=== PATIENT | male | born 1970 | race Caucasian/White ===

== ENCOUNTER 2016-03-23 11:15 | Emergency (ER) | payer SELFPAY ==
--- NOTE | 2016-03-23 11:32 | ED Physician Documentation ---
Seizure - HISTORIAN Historian: patient (Pateint states that he has seizures several times a year, was on anticonvulsnat meds at one time but did not tolerate them. Has not had any medications for several years and does not want to take any. No precipitating causes for his seizures. ) - HPI Chief Complaint: Seizure Timing/Onset/Duration: details cant be verified. denies: multiple episodes, continued on arrival Last known Well Date: 03/23/16 Last Known Well Time: 10:50 Last known Well Code/Unknown Code: Known Witnessed By: friend Preceding Symptoms: none Activity Prior to Seizure: sitting at [employer] Character of Seizure(s): lost consciousness, "shaking all over". denies: incontinence of urine, incontinence of stool, stopped breathing Postictal Symptoms: confusion Location of Injury: none Further Comments: yes (Patient has a history of seizures, occur about 2 times a year. Patient is currently not on any seizure medications. Not sure when his last one was.) - ROS NEURO/PSYCH: denies: headache EYES/ENT: none CVS/RESP: none - PAST HX Previous seizure/seizure disorder: occasional, since childhood Etiology: idiopathic Other History: none Surgeries/Procedures: none Immunizations: referred to PCP Allergies/Adverse Reactions: Allergies Allergy/AdvReac Type Severity Reaction Status Date / Time No Known Allergies Allergy Verified 03/23/16 11:57 Home Medications: Ambulatory Orders Medication Instructions Recorded NK [NK] 03/23/16 - SOCIAL HX Smoking History: non-smoker Alcohol Use: none Drug Use: none - FAMILY HX Family History: none - VITAL SIGNS Vital Signs: Vital Signs Temp Pulse Resp BP Pulse Ox 98.4 F 120 H 20 144/81 94 03/23/16 12:00 03/23/16 12:00 03/23/16 12:00 03/23/16 12:00 03/23/16 12:00 - REVIEWED ASSESSMENTS Nursing Assessment Reviewed: Yes ED Results Lab/Radiology - Lab Results Lab Results: Lab Results 03/23/16 03/23/16 11:25 11:25 WBC 7.60 K/ul K/ul (4.00-12.00) RBC 5.56 M/ul H M/ul (3.90-5.20) Hgb 16.4 g/dL g/dL (12.0-18.0) Hct 51.3 % % (37.0-53.0) MCV 92.3 fl fl (80.0-100.0) MCH 29.5 pg pg (28.0-34.0) MCHC 31.9 g/dL g/dL (30.0-36.0) RDW 12.8 % % (11.3-14.3) Plt Count 340 K/mm3 K/mm3 (130-400) Neut % (Auto) 46.0 % % (39.0-79.0) Lymph % (Auto) 39.5 % % (16.0-50.0) [place] % (Auto) 8.8 % % (0.0-11.0) Eos % (Auto) 2.5 % % (0.0-6.8) Baso % (Auto) 0.6 (0.0-1.5) Neut # 3.5 # k/uL # k/uL (1.4-7.7) Lymph # 3.0 # k/uL # k/uL (0.6-4.0) [place] # 0.7 # k/uL # k/uL (0.0-0.9) Eos # 0.2 # k/uL # k/uL (0.0-0.6) Baso # 0.0 # k/uL # k/uL (0.0-0.5) Reactive Lymphs % 2.6 % % (0.0-5.0) Reactive Lymphs # 0.2 # k/uL # k/uL (0.0-0.8) Sodium 135 mmol/L L mmol/L (136-145) Potassium 3.5 mmol/L mmol/L (3.5-5.0) Chloride 103 mmol/L mmol/L (98-110) Carbon Dioxide 18 mmol/L L mmol/L (20-32) BUN 11 mg/dL mg/dL (10-26) Creatinine 1.0 mg/dL mg/dL (0.4-1.5) Est GFR ( Amer) > 60 (60 - ) Est GFR (Non-Af Amer) > 60 (60 - ) Glucose 174 mg/dL H mg/dL (70-99) Calcium 9.8 mg/dL mg/dL (8.5-10.5) Total Bilirubin 0.6 mg/dL mg/dL (0.2-1.2) AST 30 U/L U/L (0-41) ALT 36 U/L U/L (0-45) Alkaline Phosphatase 111 U/L U/L (46-116) Total Protein 8.0 g/dL g/dL (6.0-8.5) Albumin 5.2 g/dL g/dL (3.0-5.5) - Orders Orders: ED Orders Category Date Time Status Continuous EKG monitoring Q1H Care 03/23/16 11:29 Active Continuous Pulse Oximetry Q1H Care 03/23/16 11:[address] Saline Lock/IV Now Care 03/23/16 11:[address] BRAIN W/O CONTRAST Stat Exams 03/23/16 Ordered CBC/PLATELET/DIFF Routine Lab 03/23/16 11:25 Completed CMP Routine Lab 03/23/16 11:25 Completed DRUG SCREEN URINE MEDICARE Routine Lab 03/23/16 Uncollected URINALYSIS Routine Lab 03/23/16 Ordered EKG WITH COMPARISON Routine Ther 03/23/16 Completed Seizure Physical Exam - Physical Exam General Appearance: no acute distress, confused Altered Mental Status Higher Functions: eyes open, slow to respond. No: abnml response to pain EENT: nml eye inspection, PERRL Neck/Back: normal inspection, supple. No: lymphadenopathy, stiff neck Respiratory: no resp. distress, breath sounds nml, no evidence of rib injury. No: wheezes, rales, rhonchi CVS: reg rate & rhythm, heart sounds normal, equal pulses, no gallop Abdomen: non-tender, no organomegaly, nml bowel sounds, no distention. No: tenderness Skin: warm/dry, normal color Extremities: normal range of motion, non-tender, normal inspection, no pedal edema, no calf tenderness, normal capillary refill Observed Seizure Activity in ED: other (no seizure activity in the ED.) - Nexus Criteria Neg Nexus Criteria: Nexus criteria neg, altered mental status (postictal) Discharge Clincal Impression: Seizure Referrals: Primary Doctor,No [Primary Care Provider] - 2 Days Additional Instructions: To follow-up with your primary care provider for further advise about treatment for your seizures. Home and rest today. If you have any further problems to return to the ED. Home Medications: Ambulatory Orders NK [NK] 03/23/16 Condition: Stable Disposition: 01 HOME, SELF-CARE Decision to Admit: NO Date of Decison to Admit: 03/23/16 Decision Time: 12:17
[2016-03-23 11:50] LABS: BASOPHILS % 0.6 (0.0-1.5); EOSINOPHILS % 2.5 % (0.0-6.8); MEAN CORPUSCULAR HEMOGLOBIN 29.5 pg (28.0-34.0); MONOCYTES # 0.7 # k/uL (0.0-0.9); MONOCYTES % 8.8 % (0.0-11.0); NEUTROPHILS # 3.5 # k/uL (1.4-7.7)
[2016-03-23 12:00] LABS: eGFR (African) > 60; eGFR (Non-African) > 60
[2016-03-23 13:00] VITALS: BP 147/99
== END 2016-03-23 12:20 | disposition home or self-care (01) ==
LOC: ED 11:15
DX: R56.9 Unspecified convulsions (principal)
CPT/HCPCS: 80053; 85025; 99283; S1016

== ENCOUNTER 2016-05-25 12:35 | Emergency (ER) | payer SELFPAY ==
--- NOTE | 2016-05-25 12:49 | ED Physician Documentation ---
Seizure - HISTORIAN Historian: patient - HPI Chief Complaint: Seizure Additional Information: Patient reports a history of tonic-clonic seizures. Most recent in March of this year - patient states they happen 3-4 times per year. Declines medication. Does not have a PCP. Timing/Onset/Duration: unknown duration Last known Well Date: 05/25/16 Last Known Well Time: 11:00 Last known Well Code/Unknown Code: Known Witnessed By: family Preceding Symptoms: none Postictal Symptoms: confusion Location of Injury: none Further Comments: yes - ROS NEURO/PSYCH: dizziness. denies: headache EYES/ENT: denies: problems with vision GI/: denies: adominal pain MS/SKIN/LYMPH: denies: joint pain - PAST HX Previous seizure/seizure disorder: since childhood Allergies/Adverse Reactions: Allergies Allergy/AdvReac Type Severity Reaction Status Date / Time No Known Allergies Allergy Verified 05/25/16 12:53 Home Medications: Ambulatory Orders Medication Instructions Recorded NK [NK] 03/23/16 - SOCIAL HX Smoking History: non-smoker Alcohol Use: none Drug Use: none - FAMILY HX Family History: none - VITAL SIGNS Vital Signs: Vital Signs Temp Pulse Resp BP Pulse Ox 72 16 97/56 99 05/25/16 13:44 05/25/16 13:44 05/25/16 13:44 05/25/16 13:44 - REVIEWED ASSESSMENTS Nursing Assessment Reviewed: Yes Vitals Reviewed: Yes Seizure Physical Exam - Physical Exam General Appearance: alert, post ictal Altered Mental Status Higher Functions: no evidence of acute CVA, eyes open, slow to respond EENT: nml eye inspection, PERRL, no apparent trauma. No: swelling, ecchymosis, scleral icterus, abnml fundi, tongue abrasion, hemotympanum, Petersen's sign Neck/Back: normal inspection, supple. No: stiff neck Respiratory: no resp. distress, breath sounds nml CVS: reg rate & rhythm, heart sounds normal, equal pulses Abdomen: non-tender, no organomegaly Skin: warm/dry, normal color Extremities: normal range of motion, non-tender, normal inspection Observed Seizure Activity in ED: generalized - Nexus Criteria Neg Nexus Criteria: Nexus criteria neg. denies: focal neuro deficit Discharge Clincal Impression: Seizure Referrals: Primary Doctor,No [Primary Care Provider] - 2 Days Additional Instructions: Home and rest, no driving. Drink a lot fluids. To see a primary care provider for further care. Consider being seen at [facility] in [facility]. [phone]. [address] [facility], [facility] [address] [facility] Home Medications: Ambulatory Orders NK [NK] 03/23/16 Condition: Stable Disposition: 07 AGAINST MEDICAL ADVICE Decision to Admit: NO Date of Decison to Admit: 05/25/16 Decision Time: 13:32
[2016-05-25 13:45] VITALS: BP 97/56
== END 2016-05-25 13:44 | disposition left against medical advice (07) ==
LOC: ED 12:35
DX: R56.9 Unspecified convulsions (principal)
CPT/HCPCS: 99283

== ENCOUNTER 2018-04-23 20:07 | Emergency (ER) | payer SELFPAY ==
[2018-04-23] MEDS ORDERED: 0.9 % SODIUM CHLORIDE 1,000 ML IV ONE (20:15)
--- NOTE | 2018-04-23 20:38 | ED Physician Documentation ---
General Adult - HISTORIAN Historian: patient - HPI Stated Complaint: post seizure Chief Complaint: Seizure Onset: minutes (20) Timing: better Severity: mild Further Comments: yes (Known history of seizues. States he is not currently taking meds due to they "make me too sleepy" Has a history of TBI . He did bite his tounge (witnessed) He is awake. Asking if we would like his stage name. States he didnt see much of the super bowl) - ROS CONST: no problems EYES/ENT: none CVS/RESP: none GI/: none MS/SKIN/LYMPH: none NEURO/PSYCH: denies: headache - PAST HX Past History: other (seizure, asthma, ) Surgeries/Procedures: other (hernia ) Immunizations: UTD Allergies/Adverse Reactions: Allergies Allergy/AdvReac Type Severity Reaction Status Date / Time No Known Allergies Allergy Verified 05/25/16 12:53 Home Medications: Ambulatory Orders Medication Instructions Recorded NK 03/23/16 - SOCIAL HX Smoking History: non-smoker Alcohol Use: none Drug Use: none - FAMILY HX Family History: No - VITAL SIGNS Vital Signs: Vital Signs Temp Pulse Resp BP Pulse Ox 97/56 05/25/16 13:44 - REVIEWED ASSESSMENTS Nursing Assessment Reviewed: Yes Vitals Reviewed: Yes ED Results Lab/Radiology - Orders Orders: ED Orders Category Date Time Status 0.9 % Sodium Chloride [Normal Saline] 1,000 ml Med 04/23/18 20:15 Discontinued IV .STK-MED General Adult Physical Exam - PHYSICAL EXAM GENERAL APPEARANCE: no distress EENT: eye inspection normal, pharynx normal, no signs of dehydration, TM's nml, other (small cut on left side of tongue ) NECK: normal inspection RESPIRATORY: no resp distress, chest non-tender, breath sounds normal CVS: reg rate & rhythm, heart sounds normal ABDOMEN: soft, normal bowel sounds, no distension BACK: normal inspection SKIN: warm/dry, normal color EXTREMITIES: non-tender NEURO: oriented X3 Discharge Clincal Impression: Seizure Referrals: Primary Doctor,No [Primary Care Provider] - 2 Days Comments: 1. TAKE your meds 2. Follow up with PCP in AM 3. Return to ER for any concerns 4. Rinse mouth with warm salt water gargles Condition: Stable Disposition: 01 HOME, SELF-CARE Decision to Admit: NO Date of Decison to Admit: 04/23/18 Decision Time: 21:19
[2018-04-23 21:48] VITALS: BP 136/76
== END 2018-04-23 21:17 | disposition home or self-care (01) ==
LOC: ED 20:07
DX: R56.9 Unspecified convulsions (principal)
CPT/HCPCS: 80053; 99282; S1016